=== PATIENT | male | born 1960 | race Caucasian/White ===

== ENCOUNTER 2017-04-22 15:56 | Emergency (ER) | payer OTHER ==
[2017-04-22] MEDS ORDERED: LIDOCAINE 1%-EPI 1:100000 20 ML MDV SUBQ STA (16:50)
[2017-04-22] MEDS ORDERED: TETANUS/DIPHTHERIA/PERTUSSIS 0.5 ML SYRINGE IM ONE (16:50)
--- NOTE | 2017-04-22 16:51 | ED Physician Documentation ---
PD HPI LOWER EXT INJURY - Stated complaint Stated Complaint: L LEG LAC - Chief complaint Chief Complaint: Ext Problem - History obtained from History obtained from: Patient, Family - History of Present Illness PD HPI LOW EXT INJURY LOCATION: Left, Thigh Type of injury: Laceration (chainsaw) Where injury occurred: Home Timing - onset: How many hours ago (1) Timing - duration: Hours (1) Timing - details: Abrupt onset Pain level max: 5 Pain level now: 3 Improved by: Rest Worsened by: Moving, Palpating Associated symptoms: No: Weakness, Numbness, Tingling, Swelling Contributing factors: No: Anticoagulated, Prior ortho surgery Similar symptoms before: Has not had sx before Recently seen: Not recently seen - Additional information Additional information: unknown last Td Review of Systems Constitutional: denies: Fever Respiratory: denies: Cough GI: denies: Nausea, Vomiting, Diarrhea Skin: denies: Rash Musculoskeletal: denies: Neck pain, Back pain Neurologic: denies: Focal weakness, Numbness PD PAST MEDICAL HISTORY - Past Medical History Past Medical History: No - Past Surgical History Past Surgical History: No - Present Medications Home Medications: Ambulatory Orders Medication Instructions Recorded Confirmed Cephalexin [Keflex] 500 mg PO Q6H #28 capsule 04/22/17 - Allergies Allergies/Adverse Reactions: Allergies Allergy/AdvReac Type Severity Reaction Status Date / Time No Known Drug Allergies Allergy Verified 04/22/17 16:04 - Social History Does the pt smoke?: No Smoking Status: Never smoker - Immunizations Immunizations are current?: No Immunizations: TDAP >10years/unknown PD ED PE NORMAL - Vitals Vital signs reviewed: Yes - General General: Alert and oriented X 3, No acute distress - Derm Derm: Warm and dry - Extremities Extremities: Other (L thigh, mid lateral aspect, 8cm, linear laceration. subcutaneous, gaping. ) - Neuro Neuro: Alert and oriented X 3 - Psych Psych: Normal mood, Normal affect Results - Vitals Vitals: Vital Signs - 24 hr 04/22/17 04/22/17 04/22/17 16:02 17:16 17:22 Temperature 36.4 C L 37.1 C Heart Rate 68 63 Respiratory 18 18 12 Rate Blood Pressure 123/71 135/89 H O2 Saturation 97 98 Oxygen O2 Source Room air Procedures - Laceration (location) L thigh Length in cm: 8 Wound type: Linear, Into subcut fat, Contaminated Neurovascular status: Sensory intact, Motor intact, Vascular intact Anesthesia: Lidocaine 1% with epi Wound Preparation: Irrigated copiously NS (1L), Wound explored, To the base, FB removed (dirt) Skin layer closure: [place] Other: Patient tolerated well, No complications, Neurovascular intact, Dressing applied, Tetanus UTD, Tetanus booster given (tdap) Complexity: Simple PD MEDICAL DECISION MAKING - ED course Complexity details: re-evaluated patient, considered differential, d/w patient, d/w family ED course: Patient is a 56-year-old male who presents to the emergency department the left thigh laceration from a chainsaw. This was cleansed and bandaged in the emergency department. [place] used for closure. Tolerated well. Bacitracin applied. Will place on Keflex as this was a dirty wound. Tdap given. Warnings of infection and instructions on wound care given at bedside. Also counseled on how to minimize scarring. Patient and family counseled regarding signs and symptoms for which I believe and urgent re-evaluation would be necessary. Patient with good understanding of and agreement to plan and is comfortable going home at this time This document was made in part using voice recognition software. While efforts are made to proofread this document, sound alike and grammatical errors may occur. Departure - Departure Disposition: 01 Home, Self Care Clinical Impression: Laceration of leg Qualifiers: Encounter type: initial encounter Laterality: left Qualified Code(s): S81.812A - Laceration without foreign body, left lower leg, initial encounter Condition: Good Instructions: ED Laceration Ext Sutr Stap Tape Follow-Up: Yamil Rincon MD [Primary Care Provider] - (in 14 days for staple removal ) Prescriptions: Cephalexin [Keflex] 500 mg PO Q6H #28 capsule Comments: Take all antibiotics until gone. Return if you worsen. The marii should be removed in approximately 14 days with your doctor. Return if you notice redness swelling or drainage from the wound. Discharge Date/Time: 04/22/17 17:22
[2017-04-22] MEDS ORDERED: cephALEXin 250 MG CAPSULE PO STA (17:07)
[2017-04-22] MEDS ORDERED: BACITRACIN OINT TOP ONE (17:14)
[2017-04-22 17:23] VITALS: BP 135/89
--- NOTE | 2017-04-23 19:30 | ED Physician Documentation ---
ED Addendum - Addendum Addendum: 04/23/17 19:29 Patient having increased pain today, requesting pain medications. Will leave rx with nurses for to fiber picker in the am. discussed with patient and on phone tonight. Departure - Departure Disposition: 01 Home, Self Care Clinical Impression: Laceration of leg Qualifiers: Encounter type: initial encounter Laterality: left Qualified Code(s): S81.812A - Laceration without foreign body, left lower leg, initial encounter Condition: Good Instructions: ED Laceration Ext Sutr Stap Tape Follow-Up: Yamil Rincon MD [Primary Care Provider] - (in 14 days for staple removal ) Prescriptions: Cephalexin [Keflex] 500 mg PO Q6H #28 capsule Hydrocodone/Acetaminophen [Hydrocodon-Acetaminophen 5-325] 1 - 2 each PO Q6H PRN #14 tablet PRN Reason: pain Comments: Take all antibiotics until gone. Return if you worsen. The marii should be removed in approximately 14 days with your doctor. Return if you notice redness swelling or drainage from the wound. Discharge Date/Time: 04/22/17 17:22
== END 2017-04-22 17:22 | disposition home or self-care (01) ==
LOC: ED 15:56
DX: S71.112A Laceration without foreign body, left thigh, initial encounter (principal); W29.3XXA Contact with powered garden and outdoor hand tools and machinery, initial encounter; Y92.019 Unspecified place in single-family (private) house as the place of occurrence of the external cause; Z23 Encounter for immunization
CPT/HCPCS: 12004; 90471; 90715; 99283; A9270

== ENCOUNTER 2019-01-04 11:16 | Outpatient (CLI) | payer OTHER ==
[2019-01-04 11:31] LABS: BASOPHILS % (AUTO) 0.3 %; EOSINOPHILS # (AUTO) 0.2 10^3/uL (0.0-0.7); EOSINOPHILS % (AUTO) 3.9 %; HGB - HEMOGLOBIN 14.6 g/dL (14.0-18.0); LYMPHOCYTES # (AUTO) 2.1 10^3/uL (1.5-3.5); LYMPHOCYTES % (AUTO) 34.3 %; MEAN CORPUSCULAR HGB CONC 34.6 g/dL (32.0-36.0); MEAN CORPUSCULAR VOLUME 95.5 fL (80.0-94.0); MEAN PLATELET VOLUME 8.9 fL (7.4-11.4); MONOCYTES # (AUTO) 0.6 10^3/uL (0.0-1.0); MONOCYTES % (AUTO) 10.7 %; NEUTROPHILS % (AUTO) 50.6 %; PLT - PLATELET COUNT 270 10^3/uL (130-450); RED BLOOD COUNT 4.42 10^6/uL (4.70-6.10); RED CELL DISTRIBUTION WIDTH 11.9 % (12.0-15.0)
[2019-01-04 11:54] LABS: ALBUMIN 4.6 g/dL (3.2-5.5); BILIRUBIN,DIRECT 0.1 mg/dL (0.1-0.5); BILIRUBIN,TOTAL 0.8 mg/dL (0.2-1.0); TOTAL PROTEIN 7.8 g/dL (6.7-8.2)
== END 2019-01-04 11:17 | disposition home or self-care (01) ==
LOC: LAB 11:16
PROVIDERS: ATTEND Dermatology
DX: B35.1 Tinea unguium (principal)
CPT/HCPCS: 36415; 80076; 85025